=== PATIENT | female | born 1955 | race Caucasian/White ===

== ENCOUNTER 2020-10-25 18:27 | Emergency (ER) | payer MEDICARE, BC ==
[2020-10-25 18:36] VITALS: BP 138/68; PULSE 76
--- NOTE | 2020-10-25 18:37 | EDM.PDOC ---
ED HPI GENERAL MEDICAL PROBLEM - General Chief Complaint: General Stated Complaint: hoarse voice, fullness in throat, dizzy Time Seen by Provider: 10/25/20 18:27 Source of Information: Reports: Patient, Family ([id number], Zainab), Old Records ([facility] chart/EMR) History Limitations: Reports: No Limitations - History of Present Illness INITIAL COMMENTS - FREE TEXT/NARRATIVE: The patient was brought to the emergency room by her [id number] via private automobile for evaluation of progressive sinus drainage into her epipharynx, which is causing her some difficulty in swallowing shortly prior to arrival. She is having a mild secondary nonproductive cough secondary to this drainage with no history of aspiration or known exposure to infection. She did receive an influenza booster this past season and has received her second COVID-19 immunization 6 days ago. Her sinus symptoms have been present for about 2 weeks with possible intermittent fever and chills, however she did not measure her temperature. She has not taken any medications for her symptoms to this point. The patient denies any chest pain/pressure, heart flutter, orthostasis, orth opnea, diaphoresis, paresthesias, recent decreased exercise tolerance, or any other anginal-type symptoms. No recent history of abdominal pain, heartburn, nausea, diarrhea, melena, gross hematochezia, or any food intolerance, including fatty foods, etc. with normal bowel movement at 2 PM this afternoon. She denies any gross hematuria, colic, or other UTI symptoms. The patient also denies any recent wheezing, dyspnea, etc. although occasional nonproductive cough and dizziness secondary to her sinus symptoms as above. She also states that she has had intermittent left auricular drainage in the last couple of weeks with 6/10 secondary otalgia. Onset: Gradual, Other (As above) Duration: Week(s): (As above), Getting Worse Location: Reports: Other (Left-sided otalgia as above). Denies: Head, Face, Neck, Chest, Abdomen, Back, Upper Extremity, Left, Upper Extremity, Right, Radiates to Quality: Reports: Pressure, Same as Previous Episode Severity: Moderate Improves with: Reports: None Worsens with: Reports: None Context: Reports: Other (As above). Denies: Sick Contact, Trauma Associated Symptoms: Reports: Cough, Fever/Chills. Denies: Confusion, Chest Pain, cough w sputum, Diaphoresis, Headaches, Loss of Appetite, Malaise, Nausea/Vomiting, Rash, Seizure, Shortness of Breath, Syncope, Weakness Treatments [employer]: Reports: Other (see below) (None) Left Ear Pain Score (Numeric/FACES): 6 - Related Data Allergies Allergy/AdvReac Type Severity Reaction Status Date / Time No Known Allergies Allergy Verified 10/25/20 18:28 Home Meds: Home Meds Amoxicillin/Clavulanate K [Augmentin 875-125 MG] 1 tab PO BIDMEALS #20 tablet 10/25/20 [Rx] Apixaban [Eliquis] 2.5 mg PO DAILY 10/25/20 [History] Ascorbic Acid [Vitamin C] 250 mg PO DAILY 10/25/20 [History] Aspirin 325 mg PO DAILY 10/25/20 [History] Calcium Carb, Citrate/Vit D3 [Calcium + D3 ER Tablet] 1 each PO DAILY 10/25/20 [History] ClonazePAM [KlonoPIN] 0.5 mg PO BID 10/25/20 [History] Doxepin [SINEquan] 25 mg PO BEDTIME 10/25/20 [History] Escitalopram [Lexapro] 20 mg PO DAILY 10/25/20 [History] Esomeprazole [NexIUM] 40 mg PO BEDTIME 10/25/20 [History] FA/Lycopene/Lut/MV,Ca,Iron,Min [Centrum] 1 tab PO DAILY 10/25/20 [History] Fenofibric Acid (Choline) [Fenofibric Acid] 135 mg PO DAILY 10/25/20 [History] Ferrous Sulfate [Slow Fe] 1 tab PO DAILY 10/25/20 [History] Guaifenesin/Pseudoephedrne HCl [Mucinex D ER 600-60 mg Tablet] 1 each PO BID #20 tab.er.12h 10/25/20 [Rx] Linagliptin [Tradjenta] 5 mg PO DAILY 10/25/20 [History] Magnesium Oxide 500 mg PO BID 10/25/20 [History] Meclizine [Antivert] 25 mg PO Q6H PRN 10/25/20 [History] Propranolol HCl [Propranolol] 60 mg PO QID 10/25/20 [History] Temazepam [Restoril] 15 mg PO BEDTIME PRN 10/25/20 [History] Topiramate 150 mg PO DAILY 10/25/20 [History] amLODIPine Besylate [Norvasc] 2.5 mg PO DAILY 10/25/20 [History] atorvaSTATin [Lipitor] 60 mg PO BEDTIME 10/25/20 [History] buPROPion HCL [Bupropion Xl] 150 mg PO DAILY 10/25/20 [History] Past Medical History HEENT History: Reports: Allergic Rhinitis, Cataract, Hard of Hearing, Impaired Vision, Otitis Media, Sinusitis, Other (See Below). Denies: Glaucoma, Macular Degeneration, Retinal Detachment Other HEENT History: Mild presbycusis. Seasonal allergies with recurrent allergic rhinitis and sinusitis. Patient wears reading glasses. Torus palatinum. Nasal septum deviation. Cardiovascular History: Reports: Arrhythmia, Blood Clots/VTE/DVT, Cardiomyopathy, High Cholesterol, Hypertension. Denies: Afib, Aneurysm, CAD, Heart Failure, Heart Murmur, IL, PVD, Syncope Other Cardiovascular History: Dyslipidemia. Grade 1 diastolic dysfunction by echocardiogram. Hx. of SVT. History of DVT of the right arm in December 2011 with additional superficial thrombosis of the right leg on 09/30/2012 with chronic Eliquis therapy. Respiratory History: Reports: Asthma, Bronchitis, Recurrent, COPD, Intubation, Previous, Other (See Below). Denies: Intubation, Difficult, PE, Pneumonia, Recurrent, Pneumothorax, Pulmonary Fibrosis, Sleep Apnea, TB Other Respiratory History: Bronchospastic airway disease. Gastrointestinal History: Reports: Cholelithiasis, Gastritis, GERD, GI Bleed, Other (See Below). Denies: Celiac Disease, Chronic Constipation, Chronic Diarrhea, Colon Polyp, Fecal Incontinence, Inflammatory Bowel Disease, Irritable Bowel Syndrome, PUD Other Gastrointestinal History: History of gastritis requiring blood transfusion as below with no known history of peptic ulcer? Genitourinary History: Reports: Acute Renal Failure, Chronic Renal Insuffiency, Diabetic Nephropathy, Other (See Below). Denies: Renal Calculus, Retention, Urinary, STD, Urinary Incontinence, UTI, Recurrent Other Genitourinary History: History of acute renal failure in May 2012 with additional chronic diabetic nephropathy. PLANT SPECIALIST History: Reports: Fibroids, . Denies: Spontaneous : 1 Para: 1 LMP (Approximate): Other (See Below) Other PLANT SPECIALIST History: Surgical menopause secondary to postmenopausal bleeding with no history of malignancy. Full-term delivery by without complications during . Musculoskeletal History: Reports: Arthritis, Back Pain, Chronic, Gout, Neck Pain, Chronic, Osteoarthritis, Osteoporosis. Denies: Fracture, RA, SLE Neurological History: Reports: Headaches, Chronic, Migraines, Vertigo. Denies: Alzheimers Disease, Cerebral Aneurysms, Concussion, Head Trauma, MS, Neuropathy, Diabetic, Neuropathy, Peripheral, Parkinson's, Seizure, TIA Psychiatric History: Reports: Addiction, Anxiety, Depression, Other (See Below). Denies: Abuse, Victim of, ADD, ADHD, Psych Hospitalization(s), PTSD, Suicide Attempt, Suicidal Ideation Other Psychiatric History: Previous chronic Ultram and narcotic use. Endocrine/Metabolic History: Reports: Diabetes, Type II, Hypokalemia, Hypomagnesemia, Osteopenia, Osteoporosis. Denies: Diabetes, Gestational, Diabetes, Type I, Diabetes Mellitus, Type 3c, Hypothyroidism, IDDM Hematologic History: Reports: Anemia, Blood Transfusion(s), Folic Acid, Iron Deficiency, Other (See Below). Denies: B12 Deficiency Other Hematologic History: Blood transfusion on 05/26/2012 possibly secondary to upper GI bleed? Immunologic History: Reports: None. Denies: AIDS, HIV, SLE Oncologic (Cancer) History: Reports: None. Denies: Basal Cell Carcinoma, Breast, Cervix, Colon, Hodgkin's Lymphoma, Leukemia, Lymphoma, Malignant Melanoma, Non-Hodgkin's Lymphoma, Ovarian, Squamous Cell Carcinoma, Uterine Dermatologic History: Reports: None. Denies: Eczema, Psoriasis - Infectious Disease History Infectious Disease History: Reports: Chicken Pox, Shingles (Left forehead on 05/25/2015.) - Past Surgical History Head Surgeries/Procedures: Reports: None HEENT Surgical History: Reports: Cataract Surgery, Oral Surgery, Other (See Below). Denies: Adenoidectomy, Eye Surgery, Laser Surgery, LASIK, Myringotomy w Tube(s), Naso-Sinus Surgery, Tonsillectomy Other HEENT Surgeries/Procedures: [place] teeth extraction x3 at age 14. Bilateral cataract surgery at age 22? Cardiovascular Surgical History: Reports: None. Denies: Varicose Respiratory Surgical History: Reports: None. Denies: Thoracentesis GI Surgical History: Reports: Appendectomy, Cholecystectomy, Colonoscopy, EGD, Other (See Below). Denies: Hernia, Abdominal, Hernia, Inguinal, Hernia Repair/Other, Polypectomy Other GI Surgeries/Procedures: Open cholecystectomy in 1977. Appendectomy in 1968 secondary to perforated appendix with subsequent 3 abdominal surgeries required between 1968 and 1973 secondary to abdominal abscesses. EGD with biopsies and colonoscopy on 07/19/2015 with previous EGD and colonoscopy on 06/10/2012. Female Surgical History: Reports: Section, Hysterectomy, Salpingo- Oophorectomy, Other (See Below). Denies: D&C, Tubal Ligation Other Female Surgeries/Procedures: Complete hysterectomy with bilateral salpingo-oophorectomy secondary to fibroids and postmenopausal bleeding in 2016. Endocrine Surgical History: Reports: None. Denies: Thyroid Biopsy Neurological Surgical History: Reports: None. Denies: C-Spine, Discectomy, Laminectomy, Lumbar Spine, Sacral Spine, Spinal Fusion, Thoracic Spine, Vertebroplasty Musculoskeletal Surgical History: Reports: None. Denies: Arthroscopic Procedure, Carpal Tunnel, Ganglion Cyst, Joint Replacement, ORIF, Shoulder Surgery Oncologic Surgical History: Reports: None Dermatological Surgical History: Reports: None - Past Imaging History Past Imaging History: Reports: Cardiac Echo (09/30/2016 with ejection fraction of 60-65% and findings as above.), CAT Scan (CT of the head on 01/18/2012.), DEXA Scan (09/30/2016), Mammogram (Last on 07/09/2015.), Sleep Study (05/17/2012.), Ultrasound (Bilateral renal ultrasound on 09/30/2016. Pelvic ultrasound on 08/07/2015 and 07/14/2012.) Social & Family History - Tobacco Use Tobacco Use Status *Q: Never Tobacco User Tobacco Use Within Last Twelve Months: No Used Tobacco, but Quit: No Smoking Cessation Information Provided To Patient: No Second Hand Smoke Exposure: No Second Hand Smoke Education Provided: No - Caffeine Use Caffeine Use: Reports: Coffee (2 cups/day). Denies: Energy Drinks, Soda, Tea - Alcohol Use Alcohol Use History: No Days Per Week of Alcohol Use: 0 Number of Drinks Per Day: 0 Number of Drinks Per Day Comment: No previous DWIs, problems with alcohol abuse, etc. Total Drinks Per Week: 0 Alcohol Use in Last Twelve Months: No - Recreational Drug Use Recreational Drug Use: No Drug Use in Last 12 Months: No Recreational Drug Type: Denies: Amphetamines (Speed), Cocaine, Heroin, Inhalants (Glues, Solvents, Aerosols), LSD (Acid), Marijuana/Hashish, Methamphetamine, Morphine, Oxycodone - Living Situation & Occupation Living situation: Reports: , with Family (Debilitated ) ED ROS GENERAL - Review of Systems Review Of Systems: Comprehensive ROS is negative, except as noted in HPI. ED EXAM, GENERAL - Physical Exam Exam: See Below Exam Limited By: No Limitations General Appearance: Alert, WD/WN, No Apparent Distress, Anxious (Moderate) Eye Exam: Bilateral Eye: EOMI, Normal Inspection (No vertigo or nystagmus), PERRL Ears: Normal External Exam, Normal Canal, Normal TMs, Hearing Loss (Mild bilateral presbycusis), Other (No evidence of left-sided TM perforation auricular drainage) Nose: Nasal Drainage (Mildly purulent bilateral) Throat/Mouth: Normal Lips, Normal Teeth, Normal Gums, Normal Oropharynx (Trace erythema in the posterior pharynx with large amounts of purulent drainage from the sinuses in the epipharynx), Normal Voice, No Airway Compromise, Other (1 cm torus palatinus). No: Dysphagia, Inflammation, Perioral Cyanosis Head: Atraumatic, Normocephalic. No: Facial Swelling, Facial Tenderness, Sinus Tenderness Neck: Normal Inspection, Supple, Non-Tender, Full Range of Motion. No: Carotid Bruit, Lymphadenopathy (L), Lymphadenopathy (R), Thyromegaly Respiratory/Chest: No Respiratory Distress, Lungs Clear, Normal Breath Sounds, No Accessory Muscle Use, Chest Non-Tender. No: Pleural Rub, Retractions Cardiovascular: Normal Peripheral Pulses, Regular Rate, Rhythm, No Edema, No Gallop, No JVD, No Murmur, No Rub. No: Gallop/S3, Gallop/S4, Friction Rub Peripheral Pulses: 2+: Radial (L), Radial (R) GI/Abdominal: Normal Bowel Sounds, Soft, Non-Tender, No Organomegaly, No Distention, No Abnormal Bruit, No Mass. No: Guarding (Female) Exam: Deferred Rectal (Female) Exam: Deferred Back Exam: Normal Inspection, Full Range of Motion. No: CVA Tenderness (L), CVA Tenderness (R), Muscle Spasm Extremities: Normal Inspection, Normal Range of Motion, Non-Tender, No Pedal Edema, Normal Capillary Refill. No: Joyce's Sign Neurological: Alert, Oriented, CN II-XII Intact, Normal Cognition, Normal Gait, No Motor/Sensory Deficits Psychiatric: Anxious (Moderate), Depressed Mood (Moderate with adequate eye contact) Skin Exam: Warm, Dry, Intact, Normal Color, No Rash, Stud(s) (Auricular bilaterally). No: Diaphoretic, Wound/Incision Lymphatic: No Adenopathy Course - Vital Signs Last Recorded V/S: Last Vital Signs Temp 36.5 C 10/25/20 18:28 Pulse 76 10/25/20 18:28 Resp 20 10/25/20 18:28 BP 138/68 10/25/20 18:28 Pulse Ox 95 10/25/20 18:28 Vital Signs - 24 hr 10/25/20 18:28 Temperature [ 36.5 C Temporal] Pulse, 76 Peripheral [ Pulse Oximetry] Respiratory 20 Rate Blood Pressure 138/68 [Right Upper Arm] O2 Sat by Pulse 95 Oximetry - Orders/Labs/Meds Orders: Active Orders 24 hr Category Date Time Status Sinus Less 3V [CR] Stat Exams 10/25/20 18:37 Taken CULTURE STREP A CONFIRMATION [RM] Stat Lab 10/25/20 18:45 Results STREP SCRN A RAPID W CULT CONF [RM] Stat Lab 10/25/20 18:45 Results Obtain Past Medical Record [OM.PC] Routine Oth 10/25/20 18:37 Active Labs: None Meds: Medications Discontinued Medications Generic Name Dose Route Start Last Admin Trade Name Yairq PRN Reason Stop Dose Admin Ceftriaxone Sodium 1 gm 10/25/20 18:38 10/25/20 19:28 Ceftriaxone 1 Gm Vial IM 10/25/20 18:39 1 gm ONETIME ONE Administration Lidocaine HCl 2.1 ml 10/25/20 18:38 10/25/20 19:30 Lidocaine 1% 5 Ml Sdv INJECT 10/25/20 18:39 Not Given ONETIME ONE - Radiology Interpretation Free Text/Narrative:: X-rays of the sinuses shows evidence of 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 Departure - Departure Time of Disposition: 19:55 Disposition: Home, Self-Care 01 Condition: Good Clinical Impression: Sinusitis, Peptic reflux disease, Mixed anxiety and depressive disorder Sinusitis Qualifiers: Sinusitis location: frontal Chronicity: acute Recurrence: recurrent Qualified Code(s): J01.11 - Acute recurrent frontal sinusitis Hypertension Qualifiers: Hypertension type: essential hypertension Qualified Code(s): I10 - Essential (primary) hypertension Hyperlipidemia Qualifiers: Hyperlipidemia type: mixed hyperlipidemia Qualified Code(s): E78.2 - Mixed hyperlipidemia Osteoarthritis Qualifiers: Osteoarthritis location: multiple joints Osteoarthritis type: primary Qualified Code(s): M89.49 - Other hypertrophic osteoarthropathy, multiple sites - Discharge Information *PRESCRIPTION DRUG MONITORING PROGRAM REVIEWED*: Not Applicable Prescriptions: Amoxicillin/Clavulanate K [Augmentin 875-125 MG] 1 tab PO BIDMEALS #20 tablet Guaifenesin/Pseudoephedrne HCl [Mucinex D ER 600-60 mg Tablet] 1 each PO BID #20 tab.er.12h Instructions: Sinusitis, Adult, [id number] Referrals: Blanka Ortiz NP [Primary Care Provider] - Forms: ED Department Discharge Additional Instructions: 1. Followup with your regular provider in 10-14 days as directed. Your provider may order CT scans of your sinuses at that time depending on your symptoms. Bring these discharge instructions with you to that visit. 2. Tylenol 650 mg by mouth every 4 hours when necessary as directed. 3. Listerine gargles four times per day, after meals and at bedtime, with additional Chloroseptic lozenges or spray as needed for 10 days and/or until symptoms resolve. 4. Immediately after this visit verify that your cellular telephone's voicemail has been activated and is empty. Also verify that your home telephone's answering machine is operating properly and has space to receive messages. Note that it is sometimes necessary for us to be able to contact you at a later date to discuss your medical care. 5. Please remember that we are ALWAYS here for you and want to answer any questions you may have. Feel free to call the hospital any time and we call you back SIVA. Sepsis Event Note (ED) - Evaluation Sepsis Screening Result: No Definite Risk - Focused Exam Vital Signs: Vital Signs Temp Pulse Resp BP Pulse Ox 10/25/20 18:28 36.5 C 76 20 138/68 95 - Problem List & Annotations (1) Sinusitis SNOMED Code(s): 70522340 Code(s): J32.9 - CHRONIC SINUSITIS, UNSPECIFIED Status: Acute Priority: High Annotation/Comment:: History of allergic rhinitis with recurrent sinusitis. 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 Various therapeutic options were discussed. IM Rocephin given in the emergency room with initiation of oral Augmentin and Mucinex D starting tomorrow morning. Close follow-up by regular provider as per discharge instructions. Consider possible CT scan of the sinuses depending on her clinical course. Note that patient did gargle several times in the emergency room with Listerine and was able to eat and drink without difficulty prior to discharge. No evidence of left auricular drainage, otitis media, etc. despite history of otalgia, etc. as above. Diarrhea precautions given secondary to her antibiotic therapy as above. Qualifiers: Sinusitis location: frontal Chronicity: acute Recurrence: recurrent Qualified Code(s): J01.11 - Acute recurrent frontal sinusitis (2) Mixed anxiety and depressive disorder SNOMED Code(s): 847580052 Code(s): F41.8 - OTHER SPECIFIED ANXIETY DISORDERS Status: Chronic Priority: Medium Annotation/Comment:: Moderate control based on today's exam. Note significant increase stressors at home secondary to having to take care of her disabled , who is currently in renal failure. She is [place] obtain [place] [facility] [place] for her . Emotional support was provided. (3) Hyperlipidemia SNOMED Code(s): 25126145 Code(s): E78.5 - HYPERLIPIDEMIA, UNSPECIFIED Status: Chronic Priority: Medium Annotation/Comment:: Currently under therapy. Continue to observe closely by her regular provider. Qualifiers: Hyperlipidemia type: mixed hyperlipidemia Qualified Code(s): E78.2 - Mixed hyperlipidemia (4) Hypertension SNOMED Code(s): 87117734 Code(s): I10 - ESSENTIAL (PRIMARY) HYPERTENSION Status: Chronic Annotation/Comment:: Under good control in the emergency room. Qualifiers: Hypertension type: essential hypertension Qualified Code(s): I10 - Essential (primary) hypertension (5) Osteoarthritis SNOMED Code(s): 146934325 Code(s): M19.90 - UNSPECIFIED OSTEOARTHRITIS, UNSPECIFIED SITE Status: Chronic Priority: Medium Annotation/Comment:: Stable by history. Qualifiers: Osteoarthritis location: multiple joints Osteoarthritis type: primary Qualified Code(s): M89.49 - Other hypertrophic osteoarthropathy, multiple sites (6) Peptic reflux disease SNOMED Code(s): 469757716 Code(s): K21.9 - GASTRO-ESOPHAGEAL REFLUX DISEASE WITHOUT ESOPHAGITIS Status: Chronic Priority: Medium Annotation/Comment:: Stable with current medical therapy. - Problem List Review Problem List Initiated/Reviewed/Updated: Yes - My Orders Last 24 Hours: My Active Orders 10/25/20 18:37 Sinus Less 3V [CR] Stat Obtain Past Medical Record [OM.PC] Routine 10/25/20 18:45 CULTURE STREP A CONFIRMATION [RM] Stat STREP SCRN A RAPID W CULT CONF [RM] Stat - Assessment/Plan Last 24 Hours: My Active Orders 10/25/20 18:37 Sinus Less 3V [CR] Stat Obtain Past Medical Record [OM.PC] Routine 10/25/20 18:45 CULTURE STREP A CONFIRMATION [RM] Stat STREP SCRN A RAPID W CULT CONF [RM] Stat Assessment:: As above Plan: As above. Extensive precautions were given to the patient and her [id number], who are in agreement with the treatment plan. See Patient Instructions for further treatment and plan.
[2020-10-25] MEDS ORDERED: cefTRIAXone 1 GM Vial IM ONE (18:38)
== END 2020-10-25 19:50 | disposition home or self-care (01) ==
LOC: LL.ED 18:27
DX: J01.11 Acute recurrent frontal sinusitis (principal); K21.9 Gastro-esophageal reflux disease without esophagitis; F41.8 Other specified anxiety disorders; I12.9 Hypertensive chronic kidney disease with stage 1 through stage 4 chronic kidney disease, or unspecified chronic kidney disease; E11.22 Type 2 diabetes mellitus with diabetic chronic kidney disease; N18.9 Chronic kidney disease, unspecified; D63.1 Anemia in chronic kidney disease; E78.2 Mixed hyperlipidemia; M89.49 Other hypertrophic osteoarthropathy, multiple sites; J44.9 Chronic obstructive pulmonary disease, unspecified; E11.21 Type 2 diabetes mellitus with diabetic nephropathy; Z79.01 Long term (current) use of anticoagulants; Z79.82 Long term (current) use of aspirin; Z79.899 Other long term (current) drug therapy
CPT/HCPCS: 87081; 87430; 96372; 99283; 99284-25; J0696

== ENCOUNTER 2023-06-23 20:21 | Observation (INO) | payer MEDICARE ==
[2023-06-23 20:41] LABS: EOSINOPHILS ABSOLUTE AUTO 0.03 K/uL (0.00-0.50); EOSINOPHILS PERCENT AUTO 1.2 % (0.0-5.0); HEMATOCRIT 35.7 % (34.0-46.0); HEMOGLOBIN 11.9 g/dL (11.7-15.5); LYMPHOCYTES ABSOLUTE AUTO 0.26 K/uL (0.50-3.50); LYMPHOCYTES PERCENT AUTO 10.2 % (10.0-50.0); MEAN CORPUSCULAR HEMOGLOBIN 30.6 pg (28.2-33.3); MEAN CORPUSCULAR HGB CONC 33.3 g/dL (31.7-36.0); MEAN CORPUSCULAR VOLUME 91.8 fL (84.0-98.0); MONOCYTES ABSOLUTE AUTO 0.28 K/uL (0.00-1.00); MONOCYTES PERCENT AUTO 10.9 % (2.0-14.0); NEUTROPHILS ABSOLUTE AUTO 1.99 K/uL (1.40-7.00); NEUTROPHILS PERCENT AUTO 77.7 % (45.0-80.0); PLATELET COUNT,PLT 135 K/uL (150-350); RED BLOOD CELL COUNT 3.89 M/uL (3.77-5.09); RED CELL DISTRIBUTION WIDTH 13.5 % (11.2-14.1); WHITE BLOOD CELL COUNT,WBC 2.6 K/uL (4.0-10.2)
[2023-06-23 20:54] LABS: INR 1.1 (0.9-1.1); PROTHROMBIN TIME 10.7 SEC (9.0-11.1)
[2023-06-23 21:01] LABS: ALANINE AMINOTRANSFERASE,ALT 391 U/L (12-78); ALBUMIN 3.6 g/dL (3.4-5.0); ALKALINE PHOSPHATASE 147 IU/L (46-116); ANION GAP 16.1 meq/L (7-15); ASPARTATE AMNIOTRANSFERASE,AST 623 U/L (15-37); BILIRUBIN TOTAL 0.6 mg/dL (0.2-1.0); BLOOD UREA NITROGEN,BUN 17 mg/dL (7-18); CALCIUM 8.6 mg/dL (8.5-10.1); CARBON DIOXIDE,CO2 22.3 mmol/L (21.0-32.0); CHLORIDE,CL 106 mmol/L (98-107); CREATININE 0.94 mg/dL (0.51-1.17); ESTIMATED GFR 66 mL/min (>=60); GLUCOSE RANDOM 129 mg/dL (70-99); POTASSIUM,K 3.4 mmol/L (3.5-5.1); PROTEIN TOTAL,TP 7.3 g/dL (6.4-8.2); SODIUM,NA 141 mmol/L (136-145)
[2023-06-23 21:06] LABS: APPEARANCE,URINE CLOUDY; BILIRUBIN,URINE NEGATIVE (NEGATIVE); COLOR,URINE YELLOW; GLUCOSE,URINE NEGATIVE (NEGATIVE); KETONES,URINE NEGATIVE (NEGATIVE); LEUKOCYTE ESTERASE,URINE SMALL (NEGATIVE); NITRITE,URINE NEGATIVE (NEGATIVE); OCCULT BLOOD,URINE NEGATIVE (NEGATIVE); PROTEIN,URINE NEGATIVE (NEGATIVE); UROBILINOGEN,URINE 0.2 E.U./dL (0.2-1.0)
[2023-06-23 21:15] LABS: BACTERIA,URINE MANY /HPF (NONE TO FEW); EPITHELIAL CELLS,URINE MANY /LPF; RBC,URINE 0-5 /HPF; WBC,URINE >100 /HPF
[2023-06-23] MEDS ORDERED: Sodium Chloride 0.9% 1,000 ML IV ONE (21:18)
[2023-06-23] MEDS ORDERED: Iopamidol 612 MG/ML 100 ML Bottle IVPUSH ONE (22:02)
[2023-06-23 22:10] LABS: LACTIC ACID 0.7 mmol/L (0.4-2.0)
[2023-06-23 22:19] LABS: T4 FREE 1.03 ng/dL (0.76-1.46); TSH ULTRASENSITIVE 1.371 mIU/mL (0.358-3.740)
[2023-06-23] MEDS: Piperacillin/Tazobactam 4.5 GM in Sodium Chloride 0.9% 100 ML IV SCH (22:23)
[2023-06-23] MEDS ORDERED: fentaNYL 50 MCG/ML SDV IVPUSH ONE (22:52)
[2023-06-23] MEDS: Sodium Chloride 0.9% 10 ML Syringe FLUSH PRN (23:10)
[2023-06-23] MEDS ORDERED: Sodium Chloride 0.9% 1,000 ML IV SCH (23:45)
[2023-06-23] MEDS ORDERED: Morphine 2 MG/ML SYRINGE IVPUSH PRN (23:45)
[2023-06-24] MEDS ORDERED: Potassium Bicarbonate/Cit Ac 20 MEQ Effervescent Tab PO ONE (00:49)
[2023-06-24] MEDS: Sodium Chloride 0.9% 10 ML Syringe FLUSH PRN ×3 (01:54→09:15)
[2023-06-24] MEDS: Piperacillin/Tazobactam 4.5 GM in Sodium Chloride 0.9% 100 ML IV SCH ×3 (03:50→15:17)
[2023-06-24] MEDS ORDERED: Piperacillin/Tazobactam 4.5 GM in Sodium Chloride 0.9% 100 ML IV SCH (04:30)
[2023-06-24 07:26] LABS: BASOPHILS ABSOLUTE AUTO 0.01 K/uL (0.00-0.20); BASOPHILS PERCENT AUTO 0.4 % (0.0-2.0); EOSINOPHILS ABSOLUTE AUTO 0.04 K/uL (0.00-0.50); EOSINOPHILS PERCENT AUTO 1.6 % (0.0-5.0); HEMATOCRIT 32.3 % (34.0-46.0); HEMOGLOBIN 10.8 g/dL (11.7-15.5); LYMPHOCYTES ABSOLUTE AUTO 0.74 K/uL (0.50-3.50); MEAN CORPUSCULAR HEMOGLOBIN 30.7 pg (28.2-33.3); MEAN CORPUSCULAR HGB CONC 33.4 g/dL (31.7-36.0); MEAN CORPUSCULAR VOLUME 91.8 fL (84.0-98.0); MONOCYTES ABSOLUTE AUTO 0.34 K/uL (0.00-1.00); MONOCYTES PERCENT AUTO 13.3 % (2.0-14.0); NEUTROPHILS ABSOLUTE AUTO 1.42 K/uL (1.40-7.00); NEUTROPHILS PERCENT AUTO 55.7 % (45.0-80.0); PLATELET COUNT,PLT 112 K/uL (150-350); RED BLOOD CELL COUNT 3.52 M/uL (3.77-5.09); RED CELL DISTRIBUTION WIDTH 13.4 % (11.2-14.1); WHITE BLOOD CELL COUNT,WBC 2.6 K/uL (4.0-10.2)
[2023-06-24 07:52] LABS: ALBUMIN 2.7 g/dL (3.4-5.0); ANION GAP 16.8 meq/L (7-15); BILIRUBIN TOTAL 1.1 mg/dL (0.2-1.0); CALCIUM 7.7 mg/dL (8.5-10.1); CARBON DIOXIDE,CO2 18.9 mmol/L (21.0-32.0); CREATININE 0.76 mg/dL (0.51-1.17); EST CRCL DRUG DOSING (CG) 55.25 mL/min; POTASSIUM,K 3.7 mmol/L (3.5-5.1); PROTEIN TOTAL,TP 5.9 g/dL (6.4-8.2)
[2023-06-24] MEDS ORDERED: Ferrous Sulfate 325 MG Tab PO SCH (13:00)
[2023-06-24] MEDS ORDERED: Sertraline 50 MG Tab PO SCH (13:45)
[2023-06-24] MEDS: Apixaban 2.5 MG Tab PO SCH ×2 (14:14→19:05)
[2023-06-24 17:12] VITALS: PULSE 66
[2023-06-24 19:04] VITALS: BP 155/80
[2023-06-24] MEDS ORDERED: amLODIPine 5 MG Tab PO SCH (21:00)
[2023-06-24] MEDS ORDERED: traZODone 50 MG Tab PO SCH (21:00)
[2023-06-24] MEDS ORDERED: ESOMEPRAZOLE 40 MG PO SCH (21:00)
[2023-06-25] MEDS ORDERED: Ascorbic Acid 500 MG Tab PO SCH (08:00)
[2023-06-25] MEDS ORDERED: Vitamin B Complex Tab PO SCH (08:00)
[2023-06-25] MEDS ORDERED: Cholecalciferol (Vitamin D3) 25 MCG Tab PO SCH (08:00)
== END 2023-06-24 19:30 | disposition home or self-care (01) ==
LOC: LL.ED 20:21 → LL.MS 23:10 → UNDOADMOB 23:10
PROVIDERS: ADMIT Physician Assistant; ATTEND Physician Assistant
DX: N30.00 Acute cystitis without hematuria (principal); R41.82 Altered mental status, unspecified; I42.9 Cardiomyopathy, unspecified; E78.00 Pure hypercholesterolemia, unspecified; I10 Essential (primary) hypertension; J44.9 Chronic obstructive pulmonary disease, unspecified; K21.9 Gastro-esophageal reflux disease without esophagitis; E11.40 Type 2 diabetes mellitus with diabetic neuropathy, unspecified; F41.9 Anxiety disorder, unspecified; F32.A Depression, unspecified; M19.90 Unspecified osteoarthritis, unspecified site; D50.9 Iron deficiency anemia, unspecified; Z90.49 Acquired absence of other specified parts of digestive tract; Z90.722 Acquired absence of ovaries, bilateral; Z90.710 Acquired absence of both cervix and uterus; Z79.01 Long term (current) use of anticoagulants; Z79.899 Other long term (current) drug therapy
CPT/HCPCS: 36415; 70450; 71046; 74177; 80053; 80074; 80143; 81001; 83605; 84439; 84443; 84481; 84484; 85025; 85610; 87040; 87086; 87088; 87186; 93005; 96361; 96365; 96366; 96375; 96376; 99285-25; A9270-GY; G0378; J2270; J2543; J3010; J3490; J7030; Q9967